=== PATIENT | female | born 1965 | race Caucasian/White ===

== ENCOUNTER 2022-10-29 18:58 | Emergency (ER) | payer OTHER, SELFPAY ==
--- NOTE | ~2022-10-29 | XR_ITS ---
EXAMINATION: XR SHOULDER, LEFT CLINICAL INFORMATION: Shoulder pain status post pulling injury. COMPARISON: None available. TECHNIQUE: Three views of the left shoulder. FINDINGS: Mild calcification is seen distally in the level of the rotator cuff near the insertion. The joint spaces are unremarkable. The visualized left ribs are intact. There is no acute fracture or dislocation. The soft tissues are unremarkable. XR/XR shoulder LT min 2V IMPRESSION: Calcification in the region of the rotator cuff suggesting calcific tendinosis. Acute rotator cuff injury cannot be excluded. Pain persists or worsens, further evaluation with MRI is recommended.
--- NOTE | 2022-10-29 19:18 | ED.UPPEXIN ---
HPI - Extremity Injury (Upper) General Chief Complaint: Extremity Problem Stated Complaint: Cant lift left Arm/severe pain Time Seen by Provider: 10/30/22 00:09 Related Data Allergies Allergy/AdvReac Type Severity Reaction Status Date / Time No Known Allergies Allergy Verified 10/29/22 19:18 Physical Exam Vital Signs: Vital Signs: Last Vital Signs Temp 98.8 F 10/29/22 19:20 Pulse 71 10/29/22 22:00 Resp 18 10/29/22 22:00 BP 128/69 10/29/22 22:00 Pulse Ox 100 10/29/22 22:00 O2 Del Method Room Air 10/29/22 22:00 BMI result Body Mass Index 26.4 Course Course Course Narrative: RME--56yo F w/no sig PMHx c/o L shoulder pain since Friday s/p walking dog and him pulling her. Denies fall/direct injury, numbness/tingling L shoulder with decreased ROM 2/2 pain, +AC joint ttp. NV intact distally XR ordered Medications Administered Discontinued Medications Generic Name Dose Route Start Last Admin Trade Name Kathya PRN Reason Stop Dose Admin Acetaminophen 975 mg 10/30/22 00:40 10/30/22 00:58 Acetaminophen 325 Mg Tablet PO 10/30/22 00:41 975 mg ONCE ONE Administration Ibuprofen 400 mg 10/30/22 00:40 10/30/22 00:58 Ibuprofen 400 Mg Tablet PO 10/30/22 00:41 400 mg ONCE ONE Administration Lidocaine 1 patch 10/30/22 00:40 10/30/22 00:58 Lidocaine 4 % Patch Adh..Patch TRANSDERMA 10/30/22 00:41 1 patch ONCE ONE Administration Protocol Discharge Plan Discharge Clinical Impression: Left shoulder pain Patient Disposition: Home, Self-Care Instructions: Calcific Tendinitis (ED), Shoulder Pain (ED), Shoulder Immobilizer (ED) Additional Instructions: 1. Tylenol 1000 mg, orally, every 6 hours as needed for pain control. Do not exceed 4000 mg within 24 hours. 2. Ibuprofen 400 mg, orally with milk or food, every 6 hours as needed pain control. I recommend that you take this in conjunction with Tylenol for improved symptom relief. 3. Lidocaine patch, apply to area of maximal tenderness as directed on the outside packaging. 4. Been provided with a referral to follow-up with Dr. Driscoll, please call the office in the morning and set up an appointment for re-evaluation further outpatient management. Return to the ER for any worsening symptoms. Referrals: Reed Driscoll MD [Physician] - (Difficulty with forward flexion of the shoulder, no tenderness over the AC, 15 degree limitation on ABduction, ?Rotator cuff) Stand Alone Forms: Work/School Release Interventions: ED Discharge Assessment Last Done: 10/30/22 01:00 Discharge Date/Time: 10/30/22 01:01
[2022-10-29 19:20] VITALS: BP 122/77; PULSE 77; RESP 16; TEMP 37.1; O2SAT 95; BMI 26.4
[2022-10-29 22:00] VITALS: BP 128/69; PULSE 71; RESP 18; O2SAT 100
--- OUTSIDE RECORDS SUMMARY | 2022-10-29 23:40 | XMS_ITS | Continuity of Care Document ---
Author Name Unknown Organization [facility] Adult Address [address] [place] [address]- Care Team Providers Care Environmental Aide Name Role Phone Benja Rae MD Primary Care Physician [place] [facility] [place] [facility] [place] 02/23/20 - 03/24/20 [facility] [address] [place] [address]- [facility] Attending Physician: Admtr, Liyah Allergies, Adverse Reactions, Alerts Substance Reaction Severity Status amoxicillin Active penicillin Active Immunizations Given and Recorded Vaccine Date Status Refusal Reason tetanus/diphtheria/pertussis, acel(Tdap) 1 03/15/14 Given Measles/Mumps/Rubella Virus Vaccine 2 07/31/07 Giv en 1Admin Note: vis dated 08/13/11 given 2Admin Note: diluent: 1455u exp Medications azithromycin 250 mg oral tablet 1 pack/packet, By Mouth, Once, # 6 tablet, 0 Refills, Soft Stop, 03/19/19 13:58:21 EDT, Tablet Start Date: 03/19/19 Status: Ordered Azithromycin 5 Day Dose Pack 250 mg oral tablet 1 pack/packet, By Mouth, Once, as directed on package labeling, # 1 pack/packet, 0 Refills, Soft Stop, 06/03/17 17:30:43, Tablet Start Date: 06/03/17 Status: Ordered escitalopram 10 mg oral tablet 1.5 tablet = 15 mg, By Mouth, Daily, # 45 tablet, 11 Refills, Maintenance, 05/30/15 11:29:38, 1.5 tablet By Mouth Daily,x30 days Start Date: 05/30/15 Stop Date: 05/24/16 Status: Ordered Mirena 52 mg intrauteral device 1 each = 52 mg, Once, 0 Refills, Maintenance Start Date: 12/20/11 Status: Ordered Problem List Condition Effective Dates Status Health Status Inform ant Carpal tunnel syndrome(Confirmed) Active Depression, major, recurrent(Confirmed) Active Stress urinary incontinence(Confirmed) Active Social History Social History Type Response Smoking Status Never smoker entered on: 08/24/14 Sex
--- OUTSIDE RECORDS SUMMARY | 2022-10-29 23:40 | XMS_ITS | Continuity of Care Document ---
Author Name Unknown Organization [facility] Adult Address Unknown Care Team Providers Care Primary Special Educator Name Role Phone Benja Rae MD [id number] Attending Physician: Benja Rae MD Allergies, Adverse Reactions, Alerts Substance Reaction Severity Status amoxicillin Active penicillin Active Immunizations Given and Recorded Vaccine Date Status Refusal Reason tetanus/diphtheria/pertussis, acel(Tdap) 1 03/15/14 Given Measles/Mumps/Rubella Virus Vaccine 2 07/31/07 Giv en 1Admin Note: vis dated 08/13/11 given 2Admin Note: diluent: 1455u exp Medications escitalopram 10 mg oral tablet 1 tablet = 10 mg, By Mouth, Daily at bedtime, take 1/2 at bedtime for the first 6 nights, # 30 tablet, 11 Refills, Maintenance, 06/18/21 15:42:00 EST, [id number], 156.8, cm, 06/18/21 15:13:00EST, Height Start Date: 06/18/21 Stop Date: 06/13/22 Status: Ordered SUMAtriptan 50 mg oral tablet 1 tablet = 50 mg, By Mouth, Daily, PRN for migraine headache, may repeat dose after 2 hours up to amaximum of 2, # 9 tablet, 11 Refills, Maintenance, 06/18/21 15:43:00 EST, Tablet, [id number], Partial fill upon patient request if the prescrip... Start Date: 06/18/21 Status: Ordered Problem List Condition Effective Dates Status Health Status Inform ant Carpal tunnel syndrome(Confirmed) Active Depression, major, recurrent(Confirmed) Active Stress urinary incontinence(Confirmed) Active Social History Social History Type Response Smoking Status Never smoker entered on: 08/24/14 Sex
--- OUTSIDE RECORDS SUMMARY | 2022-10-29 23:40 | XMS_ITS | Continuity of Care Document ---
Author Name Unknown Organization [facility] Adult Address [address] [place] [address]- Care Team Providers Care Record Press Supervisor Name Role Phone Benja Rae MD Primary Care Physician En[place] [facility] [place] Date(s): 07/26/22 - 08/25/22 [facility] Adult [address] [place] [address]- Attending Physician: Liyah Maher Admitting Physician: AdmLiyah martin Referring Physician: AdmtrLiyah Allergies, Adverse Reactions, Alerts Substance Reaction Severity Status amoxicillin Active penicillin Active Immunizations Given and Recorded Vaccine Date Status Refusal Reason tetanus/diphtheria/pertussis, acel(Tdap) 1 03/15/14 Given Measles/Mumps/Rubella Virus Vaccine 2 07/31/07 Giv en 1Admin Note: vis dated 08/13/11 given 2Admin Note: diluent: 1455u exp Medications escitalopram 10 mg oral tablet 1 tablet = 10 mg, By Mouth, Daily at bedtime, # 30 tablet, 11 Refills, Maintenance, 06/19/22 15:46:00 EST, [id number], 156.8, cm, 06/19/22 15:24:00 EST, Height Start Date: 06/19/22 Stop Date: 06/14/23 Status: Ordered SUMAtriptan 50 mg oral tablet 1 tablet = 50 mg, By Mouth, Daily, PRN for migraine headache, may repeat dose after 2 hours up to amaximum of 2, # 9 tablet, 11 Refills, Maintenance, 06/19/22 15:46:00 EST, Tablet, [id number], Partial fill upon patient request if the prescrip... Start Date: 06/19/22 Status: Ordered Problem List Condition Confirmation Course Effective Dates Status Health St atus Informant Carpal tunnel syndrome Confirmed Active Depression, major, recurrent Confirmed Active Stress urinary incontinence Confirmed Active Social History Social History Type Response Smoking Status Never smoker entered on: 08/24/14 Sex Patient Care team information Care Team Personnel Name: Benja Rae MD Position: [facility] Primary Care Physician Member Role: PCP Address: Address: [address] [place] [address]- Care Team Related Persons Name: YINA MOODY Address: home [address] [place] [id number]
--- OUTSIDE RECORDS SUMMARY | 2022-10-29 23:40 | XMS_ITS | Continuity of Care Document ---
Author Name Unknown Organization [facility] Adult Address Unknown Care Team Providers Care Seafood Service Team Member Name Role Phone Benja Rae MD Primary Care Physician [place] [facility] [place] [facility] [place] [id number] Date(s): 07/09/21 - 08/08/21 [facility] Adult Attending Physician: Liyah Maher Admitting Physician: AdmtrLiyah Referring Physician: Admtr, Gustavo8 Allergies, Adverse Reactions, Alerts Substance Reaction Severity [...]
--- OUTSIDE RECORDS SUMMARY | 2022-10-29 23:40 | XMS_ITS | Continuity of Care Document ---
Author Name Unknown Organization [facility] Adult Address [address] [place] [address]- Care Team Providers Care Box Liner Name Role Phone Benja Rae MD Primary Care Physician [phone] [place] [facility] [place] 03[place]24/20 [facility] Adult [address] [place] [address]- [facility] Attending Physician: Benja Rae MD Referring Physician: Marty Deleon Allergies, Adverse Reactions, Alerts Substance Reaction Severity [...]
--- OUTSIDE RECORDS SUMMARY | 2022-10-29 23:40 | XMS_ITS | Continuity of Care Document ---
Author Name Unknown Organization [facility] Address [address] [place] [address]- Care Team Providers Care Investor Relations Analyst Name Role Phone Benja Rae MD Primary Care Physician Encounter [facility] [place] Date(s): 06/09/20 - 07/09/20 [facility] [address] [place] [address] Allergies, Adverse Reactions, Alerts Substance Reaction Severity Status amoxicillin Active penicillin Active Immunizations Given and Recorded Vaccine Date Status Refusal Reason tetanus/diphtheria/pertussis, acel(Tdap) 1 03/15/14 Given Measles/Mumps/Rubella Virus Vaccine 2 07/31/07 Giv en 1Admin Note: vis dated 08/13/11 given 2Admin Note: diluent: 1455u exp Medications buPROPion 150 mg/24 hours (XL) oral tablet, extended release 1 tablet = 150 mg, By Mouth, Every 24 hours, # 14 tablet, 0 Refills, Maintenance, 06/06/20 15:49:00EST, [id number], Partial fill upon patient request, 1 tablet By Mouth Every 24 hours,x14 days, 156.8, cm, 06/06/20 15:27:00 EST, Height Start Date: 06/06/20 Stop Date: 06/20/20 Status: Ordered buPROPion 300 mg/24 hours (XL) oral tablet, extended release 1 tablet = 300 mg, By Mouth, Daily, # 30 tablet, 11 Refills, Maintenance, 06/06/20 15:50:00 EST, [facility], Partial fill upon patient request Start Date: 06/06/20 Status: Ordered Mirena 52 mg intrauteral device 1 each = 52 mg, Once, 0 Refills, Maintenance Start Date: 12/20/11 Status: Ordered NuLYTELY with Flavor Packs oral powder for reconstitution 240 mL, By Mouth, Every 10 minutes, # 1 each, 0 Refills, Maintenance, 06/09/20 16:05:00 EST, REC Powder, [facility] #[id number], test date 07/12/20, 240 mL By Mouth Every 10 minutes, 156.8, cm, 06/06/20 15:27:00 EST, Height Start Date: 06/09/20 Status: Ordered Problem List Condition Effective Dates Status Health Status Inform ant Carpal tunnel syndrome(Confirmed) Active Depression, major, recurrent(Confirmed) Active Stress urinary incontinence(Confirmed) Active Social History Social History Type Response Smoking Status Never smoker entered on: 08/24/14 Sex
--- OUTSIDE RECORDS SUMMARY | 2022-10-29 23:40 | XMS_ITS | Continuity of Care Document ---
Author Name Unknown Organization [facility] Adult Address [address] [place] [address]- Care Team Providers Care Silk Spotter Name Role Phone Benja Rae MD Primary Care Physician [id number] Date(s[facility] 06/19/22 - 06/26/22 [facility] [address] [place] [address]- Encounter Diagnosis Depression, major, recurrent(Discharge Diagnosis) - 06/19/22 Attending Physician: Benja Rae MD Allergies, Adverse [...] Confirmed Active Stress urinary incontinence Confirmed Active Diagnosis Diagnosis Type Effective Dates Health Status inical Service Informant Depression, major, recurrent Discharge Diagnosis 06/19/22 Vital Signs Most recent to oldest [Reference Range]: 1 Height 156.8 cm (06/19/22 3:24 PM) Weight 62.5 kg (06/19/22 3:24 PM) Oxygen Saturation [94-100 %] 97 % (06/19/22 3:24 PM) Pulse Rate [55-90 bpm] 67 bpm (06/19/22 3:24 PM) Body Mass Index [18.5-24.99 kg/m2] 25.42 kg/m2 *H* (06/19/22 3:24 PM) Blood Pressure [90-138/55-84 mm Hg] 114/ 67mm Hg (06/19/22 3:24 PM) Blood pressure sites Arm, left (06/19/22 3:24 PM) Social History Social History Type Response Smoking Status Never smoker entered on: 08/24/14 Sex Patient Care team information Care Team Personnel Name: Benja Rae MD Position: [facility] Primary Care Physician Member Role: PCP Address: Address: [address] [place] [address]- Care Team Related Persons Name: YINA MOODY Address: [address] [address]
--- OUTSIDE RECORDS SUMMARY | 2022-10-29 23:40 | XMS_ITS | Continuity of Care Document ---
Author Name Unknown Organization [facility] Address [address] [facility] [place] [address]- Care Team Providers Care Continuous Dryout Operator Helper Name Role Phone Benja Rae MD Primary Care Physician Encounter 07/25/20 - 08/01/20 [facility] [address], [address] [place] [address]- Attending Physician: Benja Rae MD Admitting Physician: Benja Rae MD Referring Physician: Benja Rae MD Allergies, Adverse Reactions, [...] 14 tablet, 0 Refills, Maintenance, 06/06/20 15:49:00EST, [facility] #[id number], Partial fill upon patient request, 1 [...] Refills, Maintenance, 06/09/20 16:05:00 EST, REC Powder, [id number], test date 07/12/20, 240 mL By [...]
--- OUTSIDE RECORDS SUMMARY | 2022-10-29 23:40 | XMS_ITS | Continuity of Care Document ---
Author Name Unknown Organization [facility] Adult Address [address] [place] [address]- Care Team Providers Care Can Filler Name Role Phone Benja Rae MD Primary Care Physician Encounter [facility] Date(s): 03/31/20 - 04/30/20 [facility] [address] [place] [address]- [facility] Allergies, Adverse Reactions, Alerts Substance Reaction Severity [...]
--- OUTSIDE RECORDS SUMMARY | 2022-10-29 23:40 | XMS_ITS | Continuity of Care Document ---
Author Name Unknown Organization [facility] Adult Address [address] [place] [address]- Care Team Providers Care Station Superintendent Name Role Phone Benja Rae MD Primary Care Physician Encounter [facility] [place] Date(s): 07/26/22 - 08/02/22 [facility] Adult [address] [place] [address]- Encounter Diagnosis Depression, major, recurrent(Discharge Diagnosis) - 07/28/22 Attending Physician: Benja Rae MD Allergies, Adverse [...] Diagnosis Diagnosis Type Effective Dates Health Status Cl inical Service Informant Depression, major, recurrent Discharge Diagnosis 07/28/22 Vital Signs Most recent to oldest [Reference Range]: 1 Height 156.8 cm (07/26/22 3:23 PM) Social History Social History Type Response Smoking Status Never smoker entered on: 08/24/14 Sex Patient Care team information Care Team Personnel Name: Benja Rae MD Position: [facility] Primary Care Physician Member Role: PCP Address: Address: [address] [place] [address]- Care Team Related Persons Name: YINA MOODY Address: home [address] [place] [id number]
--- OUTSIDE RECORDS SUMMARY | 2022-10-29 23:40 | XMS_ITS | Continuity of Care Document ---
Author Name Unknown Organization [facility] Adult Address Unknown Care Team Providers Care Gynecological Assistant Name Role Phone Benja Rae MD Primary Care Physician [phone] [id number]18/[facility] - 06/25/[facility] Encounter Diagnosis Depression, major, recurrent(Discharge Diagnosis) - 06/18/21 Migraine headache(Discharge Diagnosis) - 06/18/21 Attending Physician: Benja Rae MD Allergies, Adverse [...] major, recurrent(Confirmed) Active Stress urinary incontinence(Confirmed) Active Diagnosis Diagnosis Type Effective Dates Health Status Cl inical Service Informant Depression, major, recurrent Discharge Diagnosis 06/18/21 Migraine headache Discharge Diagnosis 06/18/21 Vital Signs Most recent to oldest [Reference Range]: 1 Height 156.8 cm (06/18/21 3:13 PM) Weight 62.9 kg (06/18/21 3:13 PM) Oxygen Saturation [94-100 %] 97 % (06/18/21 3:13 PM) Pulse Rate [55-90 bpm] 91 bpm *H* (06/18/21 3:13 PM) Body Mass Index [18.5-24.99] 25.58 *H* (06/18/21 3:13 PM) Blood Pressure [90-138/55-84 mm Hg] 118/ 74mm Hg (06/18/21 3:13 PM) Blood pressure sites Arm, left (06/18/21 3:13 PM) Social History Social History Type Response Smoking Status Never smoker entered on: 08/24/14 Sex
--- OUTSIDE RECORDS SUMMARY | 2022-10-29 23:40 | XMS_ITS | Continuity of Care Document ---
Author Name Unknown Organization [facility] Adult Address [address] [place] [address]- Care Team Providers Care Residential Living Assistant Name Role Phone Benja Rae MD Primary Care Physician Encounter [facility] [place] Date(s): 05/09/20 - 05/16/20 [facility] [address] [place] [address]- [facility] Encounter Diagnosis Diarrhea(Discharge Diagnosis) - 05/09/20 Epigastric discomfort(Discharge Diagnosis) - 05/09/20 Attending Physician: Wade Garcia Referring Physician: Benja Rae MD Allergies, Adverse Reactions, Alerts Substance Reaction Severity Status amoxicillin Active penicillin Active Immunizations Given and Recorded Vaccine Date Status Refusal Reason tetanus/diphtheria/pertussis, acel(Tdap) 1 03/15/14 Given Measles/Mumps/Rubella Virus Vaccine 2 07/31/07 Giv en 1Admin Note: vis dated 08/13/11 given 2Admin Note: diluent: 1455u exp Medications Mirena 52 mg intrauteral device 1 each = 52 mg, Once, 0 Refills, Maintenance Start Date: 12/20/11 Status: Ordered Problem List Condition Effective Dates Status Health Status Inform ant Carpal tunnel syndrome(Confirmed) Active Depression, major, recurrent(Confirmed) Active Stress urinary incontinence(Confirmed) Active Diagnosis Diagnosis Type Effective Dates Health Status Clinical Service Informant Diarrhea Discharge Diagnosis 05/09/20 Epigastric discomfort Discharge Diagnosis 05/09/20 Vital Signs Most recent to oldest [Reference Range]: 1 Height 153.00 cm (05/09/20 10:40 AM) Social History Social History Type Response Smoking Status Never smoker entered on: 08/24/14 Sex
[2022-10-30] MEDS: Lidocaine 4 % Patch ADH..PATCH 1 PATCH TRANSDERMA (00:58)
[2022-10-30] MEDS: Acetaminophen 325 MG TABLET 975 MG PO (00:58)
[2022-10-30] MEDS: Ibuprofen 400 MG TABLET PO (00:58)
== END 2022-10-30 01:01 | disposition home or self-care (01) ==
PROVIDERS: Emergency Provider Student in an Organized Health Care Education/Training Program
DX: M25.512 Pain in left shoulder (principal)
CPT/HCPCS: 73030; 99283; 99284